=== PATIENT | male | born 1980 | race Hispanic/Latino ===

== ENCOUNTER 2016-11-10 20:34 | Emergency (ER) | payer OTHER ==
[~2016-11-10] VITALS: Ht 172.7 cm; Wt 81.8 kg
[~2016-11-10 20:34] MED LIST: KEP500TA PO
[2016-11-10 20:41] VITALS: BP 134/88; PULSE 112; RESP 20; O2SAT 98
--- NOTE | 2016-11-10 21:13 | ED.REPORT ---
HPI-Altered Mental Status Date of Service Nov 10, 2016 ED Provider: Ced Leal MD Patient is a 36 year old male with a history of seizure disorder and alcohol abuse who presents to the ED complaining of visual hallucinations that began 24 hours ago. The patient was found by a friend running around, with blood on his clothing and making paranoid statements. Patient stated that he could see people fighting and shooting each other around him. He believed that someone was trying to kill him The patient also had a laceration on his head. On arrival to the ED he patient admits that he was given a small yellow tablet by a friend last night to help with his shaking. He later started experiencing hallucinations. The patient had reportedly stopping drinking alcohol 2 days prior. The patient typically drinks a 12-pack of beer daily. He has never previously experienced hallucinations. He denies headache, nausea, vomiting, fever, or any pain. History is limited by the patient's current mental status. Nursing Notes Stated Complaint: HALLUCINATION 24 HRS Chief Complaint: Psychiatric Complaint Nursing Notes Reviewed: Yes Allergies: Coded Allergies: No Known Allergies (Verified Allergy, Unknown, 08/06/15) Scheduled Levetiracetam (Keppra) 500 Mg Tablet 500 MG PO BID Scheduled PRN Chlordiazepoxide (Chlordiazepoxide) 25 Mg Capsule 50 MG PO BID PRN PRN For Anxiety General Time Seen by MD: 21:11 Chief Complaint Other (visual hallucinations) Hx Obtained From: Patient Arrived By: Walk-in Sudden in Onset?: Yes Onset Occurred: 1 day ago Symptom Duration: Since onset Severity: Current: No pain currently Severity: Maximum: No pain Recent Healthcare: No recent doctor visit, No recent hospitalization Similar Sx Previous: No Past Medical History Past Medical History alcohol abuse seizure disorder Past Surgical History Denies Family History Reports: Seizure Smoking History Former Smoker Social History Alcohol Use: >5 per day Other Social History: Good social support, Local resident Ambulatory Status Independent Review of Systems GI: Denies: Nausea, Vomiting Neurologic: Reports: Shaking, Denies: Change LOC, Headache Psychiatric: Reports: Delusional, Hallucinations, visual Complete sys rev & neg: except as marked. Hematologic: Reports Bleeding, Denies Bruising Physical Exam Initial Vital Signs Vital Signs (First) Date Time Temp Pulse Resp B/P Pulse Ox O2 Delivery O2 Flow Rate FiO2 11/10/16 20:41 37.4 112 20 134/88 98 Room Air Initial VS: Reviewed ENT: Conjunctiva normal, No scleral icterus Abdomen / GI: Soft, Non-tender, No guarding, No rebound Extremities: Vascular intact, Neuro intact, No swelling, No tenderness General/Constitutional: Awake, Alert, No acute distress Head / Eyes: Normocephalic, PERRL, No nystagmus Scabbed over linear laceration upper right scalp at hairline, near the crown of his head. No crepitus. Neck: Supple, Full range of motion Respiratory / Chest: Breath sounds NL, Breath sounds = bilat, No respiratory distress, No rales, No rhonchi, No wheezing Cardiovascular: Heart rate NL, Regular rhythm, Heart sounds NL, No murmurs Neurologic: Oriented X3, Speech NL, No motor deficits, No sensory deficits Skin: Warm, Dry Rash / Lesion Notes: heavily calloused hands with scratches over them Psychiatric: Not homicidal (no obvious hallucinations) Abnormal Thinking / Perception: Negative: Delusions - grandeur, Delusions - paranoid Interpretation & Diagnostics Interpretation & Diagnostics: Breathalyzer: 0.00 Urine Drug Screen: Negative Lab Results Interpretation Result Diagram: 11/10/16213111/10/162131 Test 11/10/16 21:32 11/10/16 21:41 White Blood Count 12.7th/mm3 (3.8-10.1) Red Blood Count 4.51mil/mm3 (4.40-5.80) Hemoglobin 14.5g/dL (13.8-17.2) Hematocrit 41.3% (41.0-50.0) Mean Corpuscular Volume 91.6fL (81-100) Mean Corpuscular Hemoglobin 32.2pg (27.0-35.0) Mean Corpuscular Hemoglobin Concent 35.1% (32.0-37.0) Red Cell Distribution Width 12.4% (12.3-15.4) Platelet Count 166bil/L (150-400) Neutrophils (%) (Auto) 80.7% (40-74) Lymphocytes (%) (Auto) 7.2% (14-46) Monocytes (%) (Auto) 11.6% (4-12) Eosinophils (%) (Auto) 0.1% (0-5) Basophils (%) (Auto) 0.2% (0-3) Erythrocyte Sedimentation Rate 3mm/hr (0-15) Sodium Level 131mEq/L (134-144) Potassium Level 3.6mEq/L (3.5-5.2) Chloride Level 91mEq/L (97-108) Carbon Dioxide Level 21mmol/L (18-29) Blood Urea Nitrogen 15mg/dL (6-20) Creatinine 0.97mg/dL (0.76-1.27) Estimat Glomerular Filtration Rate 92mL/min (>59) Glucose Level 77mg/dL (60-99) Lactic Acid Level 1.7mmol/L (0.4-2.0) Calcium Level 9.3mg/dL (8.5-10.1) Total Bilirubin 1.3mg/dL (0.0-1.2) Aspartate Amino Transf (AST/SGOT) 179U/L (0-50) Alanine Aminotransferase (ALT/SGPT) 107U/L (0-44) Alkaline Phosphatase 112U/L (25-150) Ammonia 17ug/dL (18-53) Total Protein 8.4g/dL (6.4-8.4) Albumin 4.5g/dL (3.4-5.0) Alcohols < 10mg/dL (0-10) Urine Color Yellow (YELLOW) Urine Appearance Clear (CLEAR,HAZY) Urine pH 6.0 (5.0-8.0) Urine Specific [place] 1.015 (1.003-1.035) Urine Protein Negativemg/dL (NEG,TRACE) Urine Glucose (UA) Negativemg/dL (NEGATIVE) Urine Ketones 15mg/dL (NEGATIVE) Urine Occult Blood Small (NEGATIVE) Urine Nitrite Negative (NEGATIVE) Urine Bilirubin Negative (NEGATIVE) Urine Urobilinogen Normalmg/dL (NORMAL) Urine Leukocyte Esterase Negative (NEGATIVE) Urine RBC 0-2/hpf (0-2) Urine WBC 0-5/hpf (0-5) Urine Epithelial Cells None/hpf (NONE-MOD) Urine Crystals None seen (NONE SEEN) Urine Bacteria Few/hpf (NONE-FEW) Urine Hyaline Casts None/lpf (NONE) Urine Granular Casts None seen (NONE SEEN) Urine Waxy Casts None seen (NONE SEEN) Urine Red Blood Cell Casts None seen (NONE SEEN) Urine White Blood Cell Casts None seen (NONE SEEN) Urine Mucus None seen (None Seen) Urine Trichomonas None seen (NONE SEEN) Urine Yeast None (NONE SEEN) Urinalysis Comment None Urine Culture Reflexed Not indicated CT Head Interpretation IMPRESSION: No acute intracranial abnormality. Dictated by: Margaret Tillman M.D. on 11/10/2016 at 21:58 Approved by: Margaret Tillman M.D. on 11/10/2016 at 21:58 Study: Head CT no contrast Interpretation / Wet Read by: Interpret - Radiologist Re-Eval/Medical Decision Med Decision/Clinical Course 1-year-old man presents with paranoid delusions that are improving over the course today. It turns out on further questioning that he is a daily drinker of at least a twelve pack of beer and probably more. He has had DTs in the past with efforts to withdraw, and has not had any alcohol now for two or three days. This seems to be likely the source of his paranoia and visual hallucinations. He is willing to consider stopping drinking and I am willing to provide him with some pharmacologic support to do so. He is begun with Librium 50 mg by mouth twice a day for a seven-day course with strict instructions not to drink while on it. He is urged to attend Alcoholics Anonymous. Discharged now in stable and improved condition. Source of Hx: Old records Re-Evaluation/Progress : Time of Eval: 22:30 Patient Status: Condition improved Re-Evaluation/Progress Note: Rechecked the patient. His drug tox was negative. His CT scan was negative. The patient states that his hallucinations continue to improve. It is possible that his symptoms are due to alcohol withdrawals. Patient will be treated for alcohol withdrawals. Patient understands and agrees with the plan to be discharged home. Discharge instructions and follow-up discussed. All questions were addressed. Return to the ED warnings given. Counseled Regarding: Diagnosis, Lab results, Need for follow-up, When/why to return to ED Patient Discharge & Departure Impression: Primary Impression: Alcohol withdrawal Complication of substance-induced condition: with perceptual disturbance Qualified Code: F10.232 - Alcohol dependence with withdrawal with perceptual disturbance Additional Impressions: Alcohol abuse Visual hallucinations Elevated transaminase level Alcoholic hepatitis Ascites presence: without ascites Qualified Code: K70.10 - Alcoholic hepatitis without ascites Disposition: Home Discharge Condition All VS Reviewed: Yes Condition: Stable Patient Instructions: Abuse of Alcohol (ED), Alcohol Withdrawal (ED) Additional Instructions: Begin Librium twice daily for a week. Do not drink alcohol, especially while taking the medicine. Go to Alcoholics Anonymous for help with your drinking drinking. Return if any immediate problems. Do not take medicines when you do not know what they are. Do not take medicines unless a doctor prescribes them. Comience Librium dos veces al da ivy telma semana. No ana paula alcohol, especialmente mientras oscar el medicamento. Vaya a [facility] para obtener ayuda con gilliam consumo de alcohol. Regresar si hay problemas inmediatos. No tome medicamentos cuando no sabe lo que es. No tome medicamentos a menos que un mdico los recete. Referrals: Austin Hull MD (PCP) Scribe Attestation Portions of this note were transcribed by Mayela Brown. I, Dr. Leal personally performed the history, physical exam and medical decision-making; I reviewed and confirmed the accuracy of the information in the transcribed note. Signed by: Kathi Fountain, 11/10/2016 1270 copies to: Austin Hull MD, Christopher W MD Nov 10, 2016 21:13 Mayela Brown Nov 10, 2016 21:20
[2016-11-10 21:51] LABS: BASOPHILS % (AUTO) 0.2 % (0-3); EOSINOPHILS % (AUTO) 0.1 % (0-5); MONOCYTES % (AUTO) 11.6 % (4-12); Mean Corpuscular Hemoglobin 32.2 pg (27.0-35.0); Mean Corpuscular Volume 91.6 fL (81-100); NEUTROPHILS % (AUTO) 80.7 % (40-74); Platelet Count 166 bil/L (150-400)
[2016-11-10 21:53] LABS: APPEARANCE,URINE CLEAR (CLEAR,HAZY); COLOR,URINE YELLOW (YELLOW); OCCULT BLOOD,URINE SMALL (NEGATIVE); UROBILINOGEN,URINE NORMAL (NORMAL)
--- NOTE | 2016-11-10 22:00 | DRSVH ---
PROCEDURE: CT BRAIN WITHOUT CONTRAST ([id number]) INDICATIONS: altered mental status, minor head injury TECHNIQUE: Noncontrast 4.5 mm thick angled axial sections acquired from the foramen magnum to the vertex, with c oronal reformats. COMPARISON: [facility], CT, CT BRAIN WO CON, 08/06/2015, 16:17. FINDINGS: Image quality: Excellent. CSF spaces: Basal cisterns are patent. No extra-axial fluid collections. Ventricles are normal in size and shape. Brain: No midline shift. No intracranial masses or hemorrhage. [place]-white matter interface is norm al. Skull and face: Calvarium and visualized facial bones are intact, without suspicious lesions. Sinuses: Visualized sinuses and mastoids are clear. IMPRESSION: No acute intracranial abnormality. Dictated by: Margaret Tillman M.D. on 11/10/2016 at 21:58 Approved by: Margaret Tillman M.D. on 11/10/2016 at 21:58
[2016-11-10 22:21] LABS: ERYTHROCYTE SEDIMENTATION RATE 3 mm/hr (0-15)
[2016-11-10] MEDS ORDERED: chlordiazePOXIDE 25 mg Capsule PO ONE (22:35)
[2016-11-10] MEDS ORDERED: CHLO25CA10 PO (22:38)
== END 2016-11-10 23:36 | disposition home or self-care (01) ==
LOC: SED 20:34
DX: F10.232 Alcohol dependence with withdrawal with perceptual disturbance (principal); K70.10 Alcoholic hepatitis without ascites; R74.0 Nonspecific elevation of levels of transaminase and lactic acid dehydrogenase [LDH]; R44.1 Visual hallucinations; Z87.891 Personal history of nicotine dependence
CPT/HCPCS: 36415; 70450; 80053; 81000; 81002; 82075; 82140; 83605; 85025; 85651; 86592; 99284; G0480